=== PATIENT | female | born 1985 | race American Indian/Alaskan Native ===

== ENCOUNTER 2017-02-18 14:17 | Emergency (ER) | payer MEDICARE ==
[2017-02-18 14:37] VITALS: BP 150/81
[2017-02-18 15:03] LABS: Hematocrit 42.9 % (30.3-42.9); Mean Corpuscular HGB Conc 33 % (30-34); Mean Corpuscular Hemoglobin 30 pg (28-32); Mean Corpuscular Volume 91 fl (79-97); Platelet Count 380 K/mm3 (140-440); Red Blood Count 4.73 M/mm3 (3.65-5.03); Red Cell Distribution Width 14.1 % (13.2-15.2); White Blood Count 7.4 K/mm3 (4.5-11.0)
[2017-02-18 15:19] LABS: BUN/Creatinine Ratio 10; Blood Urea Nitrogen 8 mg/dL (7-17); Calcium 8.7 mg/dL (8.4-10.2); Carbon Dioxide 25 mmol/L (22-30); Glucose 167 mg/dL (65-100)
[2017-02-18 15:20] LABS: Anion Gap 16 mmol/L; Chloride 104.6 mmol/L (98-107); Potassium 3.9 mmol/L (3.6-5.0); Sodium 142 mmol/L (137-145)
[2017-02-18 15:49] LABS: Basophils % (Manual) 0 % (0.0-1.8); Blastocytes % (Manual) 0 %
[2017-02-18 15:53] LABS: Anisocytosis Few; Diff Status Complete; Poikilocytosis Few
== END 2017-02-18 19:21 | disposition left against medical advice (07) ==
LOC: ED 14:17
DX: R07.9 Chest pain, unspecified (principal); Z53.21 Procedure and treatment not carried out due to patient leaving prior to being seen by health care provider
CPT/HCPCS: 36415; 80048; 84484; 85007; 85025; 93005; 93010

== ENCOUNTER 2018-09-11 08:42 | Emergency (ER) | payer MEDICARE ==
[2018-09-11 08:49] VITALS: BP 149/90
--- NOTE | 2018-09-11 08:59 | Emergency Department Report ---
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 - Home Meds and Allergies Home Medications: Home Medications Medication Instructions Recorded Confirmed Last Taken Vit No.129/Iron/Folic 1 each PO DAILY 03/07/15 03/07/15 Unknown [ Tablet] Previous Rx's Medication Instructions Recorded Last Taken Type Nitrofurantoin [place]/M-Cryst 100 mg PO Q12HR #14 capsule 04/09/15 Unknown Rx [Macrobid CAP] Docusate Sodium [Colace] 100 mg PO BID PRN #60 capsule 10/05/15 Unknown Rx Ibuprofen [Motrin] 800 mg PO Q8HR PRN #60 tablet 10/05/15 Unknown Rx Oxycodone HCl/Acetaminophen 1 each PO Q6HR PRN #45 tablet 10/05/15 Unknown Rx [Percocet 7.5/325 mg] Ibuprofen [Motrin 600 MG tab] 600 mg PO Q8H PRN #20 tablet 09/11/18 Unknown Rx Silver Sulfadiazine [Silvadene] 1 applic TP DAILY #50 cream..g. 09/11/18 Unknown Rx Allergies/Adverse Reactions: Allergies Allergy/AdvReac Type Severity Reaction Status Date / Time morphine Allergy Severe Anaphylaxis Verified 09/11/18 08:43 Penicillins Allergy Swelling Verified 09/11/18 08:43 ED Review of Systems ROS: Stated complaint: LT HAND BURN Other details as noted in HPI Comment: All other systems reviewed and negative ED Past Medical Hx - Past Medical History Previous Medical History?: No Hx Hypertension: Yes (pih with the 4 pregnancies) Hx Congestive Heart Failure: No Hx Diabetes: No Hx Deep Vein Thrombosis: No Hx Renal Disease: No Hx Sickle Cell Disease: No Hx Seizures: No Hx Asthma: No Hx COPD: No Hx HIV: No - Surgical History Additional Surgical History: X 3 - Social History Smoking Status: Never Smoker Substance Use Type: None - Medications Home Medications: Home Medications Medication Instructions Recorded Confirmed Last Taken Type Vit No.129/Iron/Folic 1 each PO DAILY 03/07/15 03/07/15 Unknown History [ Tablet] Nitrofurantoin [place]/M-Cryst 100 mg PO Q12HR #14 capsule 04/09/15 Unknown Rx [Macrobid CAP] Docusate Sodium [Colace] 100 mg PO BID PRN #60 capsule 10/05/15 Unknown Rx Ibuprofen [Motrin] 800 mg PO Q8HR PRN #60 tablet 10/05/15 Unknown Rx Oxycodone HCl/Acetaminophen 1 each PO Q6HR PRN #45 tablet 10/05/15 Unknown Rx [Percocet 7.5/325 mg] Ibuprofen [Motrin 600 MG tab] 600 mg PO Q8H PRN #20 tablet 09/11/18 Unknown Rx Silver Sulfadiazine [Silvadene] 1 applic TP DAILY #50 cream..g. 09/11/18 Unknown Rx Exam - Exam General: Vital signs noted. No distress. Alert and acting appropriately. HEENT: Yes Moist Mucous Membranes, No Conjuctival Injection, No Corneal Edema Skin: Yes Blistering (small round oval blisters on the left hand on the pads of the fingertips of digits 2 and 3), No Tenderness, No Edema Exam: Yes Normal Heart Sounds, No Respiratory Distress, No Sensory Deficits, No Musculoskeletal Pain ED Course Vital Signs 09/11/18 08:47 Temperature 98.8 F Pulse Rate 85 Respiratory 18 Rate Blood Pressure 149/90 O2 Sat by Pulse 99 Oximetry ED Medical Decision Making - Medical Decision Making Burn does appear to be partial thickness however the blisters are intact at this time. Patient is given pain control be discharged home. Patient given a prescription for Silvadene in case the blisters do break. Critical care attestation.: If time is entered above; I have spent that time in minutes in the direct care of this critically ill patient, excluding procedure time. ED Disposition Clinical Impression: Burn of finger and thumb, second degree Qualifiers: Encounter type: initial encounter Laterality: left Qualified Code(s): T23.242A - Burn of second degree of multiple left fingers (nail), including thumb, initi al encounter Disposition: - TO HOME OR SELFCARE Is pt being admited?: No Does the pt Need Aspirin: No Condition: Stable Instructions: Partial Thickness Burn (ED) Forms: Work/School Release Form(ED) Time of Disposition: 08:59
[2018-09-11] MEDS ORDERED: IBUPROFEN PO ONE (09:10)
== END 2018-09-11 09:17 | disposition home or self-care (01) ==
LOC: ED 08:42
DX: T23.242A Burn of second degree of multiple left fingers (nail), including thumb, initial encounter (principal); I10 Essential (primary) hypertension; Z98.890 Other specified postprocedural states; Z88.5 Allergy status to narcotic agent; Z88.0 Allergy status to penicillin; X18.XXXA Contact with other hot metals, initial encounter; Y93.89 Activity, other specified; Y92.89 Other specified places as the place of occurrence of the external cause; Y99.8 Other external cause status

== ENCOUNTER 2021-03-30 12:51 | Emergency (ER) | payer MEDICARE ==
--- NOTE | 2021-03-30 14:35 | Emergency Department Report ---
Minor Respiratory - HPI Chief Complaint: Medical Clearance Stated Complaint: FLU/COVID LIKE SYMPTOMS Duration: 3 week Pain Location: Other (generalized body weakness ) Minor Respiratory: Yes Able to Tolerate Fluids, Yes Ear Pain, Yes Cough, No Rhinorrhea, No Sore Throat, No Sick Contacts, No Hemoptysis, No Chest Pain, No Shortness of Breath, No Fever Other History: 35-year-old presents to the ED requesting a COVID test. She states that she has been having COVID-like symptoms for the past 3 weeks. She states that she has had abdominal pain, diarrhea, fever ,nausea ,cough, and body ache. Patient states at the present moment she did not have any complaint but would like to have a COVID test. Patient is alert and oriented no acute distress noted no ill appearance noted. ED Review of Systems ROS: Stated complaint: FLU/COVID LIKE SYMPTOMS Other details as noted in HPI Constitutional: fever. denies: chills Eyes: denies: eye pain, eye discharge, vision change ENT: denies: ear pain, throat pain Respiratory: cough. denies: shortness of breath, wheezing Cardiovascular: denies: chest pain, palpitations Endocrine: no symptoms reported Gastrointestinal: abdominal pain, diarrhea. denies: nausea Genitourinary: denies: urgency, dysuria, discharge Musculoskeletal: denies: back pain, joint swelling, arthralgia Skin: denies: rash, lesions Neurological: denies: headache, weakness, paresthesias Psychiatric: denies: anxiety, depression Hematological/Lymphatic: denies: easy bleeding, easy bruising ED Past Medical Hx - Past Medical History Hx Hypertension: Yes (pih with the 4 pregnancies) Hx Congestive Heart Failure: No Hx Diabetes: No Hx Deep Vein Thrombosis: No Hx Renal Disease: No Hx Sickle Cell Disease: No Hx Seizures: No Hx Asthma: No Hx COPD: No Hx HIV: No - Surgical History Additional Surgical History: X 3 - Social History Smoking Status: Never Smoker Substance Use Type: None - Medications Home Medications: Home Medications Medication Instructions Recorded Confirmed Last Taken Type Vit No.129/Iron/Folic 1 each PO DAILY 03/07/15 03/30/21 Unknown History [ Tablet] Nitrofurantoin [place]/M-Cryst 100 mg PO Q12HR #14 capsule 04/09/15 03/30/21 Unknown Rx [Macrobid CAP] Docusate Sodium [Colace] 100 mg PO BID PRN #60 capsule 10/05/15 03/30/21 Unknown Rx Ibuprofen [Motrin] 800 mg PO Q8HR PRN #60 tablet 10/05/15 03/30/21 Unknown Rx Oxycodone HCl/Acetaminophen 1 each PO Q6HR PRN #45 tablet 10/05/15 03/30/21 Unknown Rx [Percocet 7.5/325 mg] Ibuprofen [Motrin 600 MG tab] 600 mg PO Q8H PRN #20 tablet 09/11/18 03/30/21 Unknown Rx Silver Sulfadiazine [Silvadene] 1 applic TP DAILY #50 cream..g. 09/11/18 03/30/21 Unknown Rx Minor Respiratory Exam - Exam General: Vital signs noted. No distress. Alert and acting appropriately. HEENT: Yes Moist Mucous Membranes, No Pharyngeal Erythema, No Pharyngeal Exudates, No Rhinorrhea, No Conjuctival Injection, No Frontal Tenderness, No Maxillary Tenderness Ear: Neither TM Bulge, Neither TM Erythema, Neither EAC Pain, Neither EAC Discharge Neck: Yes Supple, No Adenopathy Lungs: Yes Good Air Exchange, No Wheezes, No Ronchi, No Stridor, No Cough, No Labored Respirations, No Retractions, No Use of Accessory Muscles, No Other Abnormal Lung Sounds Heart: Yes Regular, No Murmur Abdomen: Yes Normal Bowel Sounds, No Tenderness, No Peritoneal Signs Skin: No Rash, No Edema Neurologic: Alert and oriented, no deficits. Musculoskeletal: Unremarkable. ED Medical Decision Making - Medical Decision Making 35-year-old presents to the ED requesting a COVID test. She states that she has been having COVID-like symptoms for the past 3 weeks. She states that she has had abdominal pain, diarrhea, fever ,nausea ,cough, and body ache. Patient states at the present moment she did not have any complaint but would like to h ave a COVID test. Patient is alert and oriented no acute distress noted no ill appearance noted. Explain to patient that we do not do any COVID test in the ED. normal physical examination. discussed plan of care with patient to follow-up with primary care doctor or outside facility for further test. Patient verbalized understanding. - Differential Diagnosis COVID, influenza , common cold Critical care attestation.: If time is entered above; I have spent that time in minutes in the direct care of this critically ill patient, excluding procedure time. ED Disposition Clinical Impression: Suspected COVID-19 virus infection Disposition: HOME / SELF CARE / HOMELESS Is pt being admited?: No Does the pt Need Aspirin: No Condition: Stable Instructions: COVID-19 Frequently Asked Questions, COVID-19: How to Protect Yourself and Others - [facility] Additional Instructions: Your symptoms appear most consistent with a nonspecific viral syndrome. Cox javi, given this current pandemic, COVID-19 is in the differential of possibilities. Despite your previous negative COVID-19 test, I do recommend repeat outpatient Covid 19 testing. In the meantime, isolate/quarantine yourself and stay away from anyone who is elderly, immunocompromised or chronically ill. You can use ibuprofen every 6-8 hours and Tylenol every 4-8 hours, using the dosing on the back of the bottle, as needed for any fever or body aches. Return to the emergency department with any worsening of your symptoms, development of chest pain or shortness of breath, or with any acute distress. Referrals: PRIMARY MD ADE [Primary Care Provider] - 3-5 Days [facility] [Provider Group] - 3-5 Days
[2021-03-30 14:36] VITALS: BP 138/92
== END 2021-03-30 15:08 | disposition home or self-care (01) ==
LOC: ED 12:51
DX: Z20.822 Contact with and (suspected) exposure to COVID-19 (principal)
CPT/HCPCS: 99282